=== PATIENT | female | born 1970 ===

== ENCOUNTER 2022-05-24 05:30 | Day surgery (SDC) | payer OTHER ==
[~2022-05-24] VITALS: Ht 160 cm; Wt 66.7 kg
== END 2022-05-24 12:30 | disposition home or self-care (01) ==
LOC: CIR.AMB 05:30
PROVIDERS: ATTEND Orthopaedic Surgery Hand Surgery
DX: S63.124A Dislocation of interphalangeal joint of right thumb, initial encounter (principal); Z20.822 Contact with and (suspected) exposure to COVID-19